=== PATIENT | female | born 1960 | race Caucasian/White ===

== ENCOUNTER 2019-05-04 08:33 | Observation (INO) | payer BC ==
[~2019-05-04] VITALS: Ht 165.1 cm; Wt 76.8 kg
[2019-05-04 09:09] VITALS: BP 115/60
[2019-05-04] MEDS ORDERED: METO25TA91 PO (09:27)
[2019-05-04] MEDS ORDERED: TOPI25TA8 PO (09:27)
[2019-05-04] MEDS ORDERED: NORT10CA PO (09:27)
[2019-05-04] MEDS ORDERED: VARE1TAB21 PO (09:27)
[2019-05-04] MEDS ORDERED: TRAZ50TA66 PO (09:27)
[2019-05-04] MEDS ORDERED: METF500T17 PO (09:27)
[2019-05-04] MEDS ORDERED: ATOR40TA PO (09:27)
[2019-05-04] MEDS ORDERED: NITR0.6T4 SL (09:27)
[2019-05-04] MEDS ORDERED: MIDAZOLAM 1 MG/ML, 5ML ONE (10:49)
[2019-05-04] MEDS ORDERED: BIVALIRUDIN 250 MG ONE (10:49)
[2019-05-04] MEDS ORDERED: FENTANYL PF 100 MCG/2ML ONE (10:49)
[2019-05-04] MEDS ORDERED: VERAPAMIL 2.5 MG/ML, 2ML ONE (10:49)
[2019-05-04] MEDS ORDERED: TICAGRELOR 90 MG TABLET ONE (10:49)
[2019-05-04] MEDS ORDERED: LIDOCAINE-MPF 1%, 5ML ONE (10:50)
[2019-05-04] MEDS ORDERED: HEPARIN 1,000 UNITS/ML, 10ML ONE (10:50)
[2019-05-04] MEDS ORDERED: CLOPIDOGREL 300 MG TABLET ONE ×2 (11:27→11:38)
[2019-05-04] MEDS ORDERED: SODIUM CHLORIDE 0.9% 1,000 ML IV SCH (11:49)
[2019-05-04] MEDS ORDERED: METOPROLOL SUCCINATE 25 MG TAB.ER.24H PO SCH (12:00)
[2019-05-04] MEDS ORDERED: ISOSORBIDE MONONITRATE ER 30 MG TABLET PO SCH (12:30)
[2019-05-04] MEDS ORDERED: KETOROLAC 30 MG/1 ML IVPush SCH (12:30)
[2019-05-04] MEDS ORDERED: KETOROLAC 30 MG/1 ML IVPush PRN (14:30)
[2019-05-04 14:40] VITALS: BP 136/66
[2019-05-04 15:34] VITALS: BP 124/73
[2019-05-04] MEDS: TOPIRAMATE 25 MG TABLET PO SCH ×2 (16:14→21:22)
[2019-05-04 19:30] VITALS: BP 132/72
[2019-05-04] MEDS: VARENICLINE 1MG TABLET PO SCH (20:17)
[2019-05-04] MEDS: METOPROLOL SUCCINATE 25 MG TAB.ER.24H PO SCH (20:17)
[2019-05-04] MEDS ORDERED: TRAZODONE 50MG TABLET PO SCH (21:00)
[2019-05-04] MEDS ORDERED: TICAGRELOR 90 MG TABLET PO SCH (21:00)
[2019-05-04] MEDS ORDERED: ATORVASTATIN 40 MG TABLET PO SCH (21:00)
[2019-05-04] MEDS ORDERED: NORTRIPTYLINE 10 MG CAPSULE PO SCH (21:00)
[2019-05-05 01:21] VITALS: BP 114/70
[2019-05-05 06:44] VITALS: BP 132/73
[2019-05-05] MEDS ORDERED: CLOPIDOGREL 75 MG TABLET PO SCH (09:00)
[2019-05-05] MEDS ORDERED: ASPI81TA45 PO (09:11)
[2019-05-05] MEDS ORDERED: CLOP75TA PO (09:11)
[2019-05-05] MEDS: TOPIRAMATE 25 MG TABLET PO SCH (09:14)
[2019-05-05] MEDS: VARENICLINE 1MG TABLET PO SCH (09:14)
[2019-05-05] MEDS: METOPROLOL SUCCINATE 25 MG TAB.ER.24H PO SCH (09:15)
[2019-05-05] MEDS ORDERED: ASPIRIN 81 MG TABLET EC PO SCH (09:30)
[2019-05-21] MEDS ORDERED: ISOS30TA8 PO (10:58)
== END 2019-05-05 10:17 | disposition home or self-care (01) ==
LOC: CACL 08:33 → 5SO 14:11 → CACL 14:38 → 5SO 14:59 → DCLOUNGE 05-05 10:15
PROVIDERS: ADMIT Internal Medicine Cardiovascular Disease; ATTEND Internal Medicine Cardiovascular Disease
DX: I25.10 Atherosclerotic heart disease of native coronary artery without angina pectoris (principal); R07.89 Other chest pain; E11.9 Type 2 diabetes mellitus without complications; I10 Essential (primary) hypertension; G43.909 Migraine, unspecified, not intractable, without status migrainosus; E78.5 Hyperlipidemia, unspecified; Z87.891 Personal history of nicotine dependence; Z98.61 Coronary angioplasty status; Z79.899 Other long term (current) drug therapy; Z79.84 Long term (current) use of oral hypoglycemic drugs
CPT/HCPCS: 82962; 93005; 93458; 96374; 99156; 99157; C1725; C1769; C1874; C1887; C1894; C9600; G0378; J0583; J1644; J1885; J2250; J3010; Q9967

== ENCOUNTER → 2019-07-12 | Outpatient (CLI) | payer BC ==
[~2019-07-12] MED LIST: ASPI81TA45 PO; ATOR40TA PO; CLOP75TA PO; ISOS30TA8 PO; METF500T17 PO; METO25TA91 PO; NITR0.6T4 SL; NORT10CA PO; TOPI25TA8 PO; TRAZ50TA66 PO; VARE1TAB21 PO
== END | disposition home or self-care (01) ==
LOC: CVU 08:38
PROVIDERS: ATTEND Nurse Practitioner Family
DX: I11.9 Hypertensive heart disease without heart failure (principal); E11.9 Type 2 diabetes mellitus without complications; E78.5 Hyperlipidemia, unspecified; Z87.891 Personal history of nicotine dependence
CPT/HCPCS: 93306